=== PATIENT | male | born 1955 | race Caucasian/White ===

== ENCOUNTER 2020-08-28 06:38 | Outpatient (NON) | payer OTHER, SELFPAY ==
[2020-08-29 14:21] LABS: SARS-CoV-2 RNA PCR Negative
== END 2020-08-28 06:39 ==
PROVIDERS: Visit Provider Family Medicine Sports Medicine
DX: Z20.828 Contact with and (suspected) exposure to other viral communicable diseases (principal); R50.9 Fever, unspecified; R53.83 Other fatigue; R53.1 Weakness
CPT/HCPCS: 87635; C9803; U0003

== ENCOUNTER 2024-05-12 14:09 | Observation (INO) | payer OTHER, SELFPAY ==
[2024-05-12] VITALS (29 sets, daily range): BP systolic 119–166; BP diastolic 70–97; PULSE 75–103; RESP 16–23; TEMP 36.4; O2SAT 87–98; BMI 36.1
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
--- NOTE | ~2024-05-12 | XR_ITS ---
EXAMINATION: XR chest 1V portable DATE: 05/12/2024 18:36 INDICATION: Hypoxia. TECHNIQUE: A single frontal view of the chest was obtained on 2 radiographs. COMPARISON: Chest CT 01/12/2024 FINDINGS: There is no pneumonia, pleural effusion, or pneumothorax. The heart size is normal. IMPRESSION: 1. No acute cardiopulmonary disease. Reviewed, dictated and finalized at location E.
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
[2024-05-12] MEDS: MORPHINE SULFATE (*CRX) 2 MG/ML INJ IV PUSH (15:03)
[2024-05-12] MEDS: ONDANSETRON INJ 4 MG/2 ML VIAL IV PUSH (15:03)
--- NOTE | 2024-05-12 16:05 | PC.NURSE ---
Patient has positive seatbelt sign across lower abdomen and across his chest. Patient complaining of left sided rib pain as well.
--- NOTE | 2024-05-12 16:17 | PC.NURSE ---
Spoke with patient's per patient request.
--- NOTE | 2024-05-12 16:18 | PC.NURSE ---
patient to cat scan
[2024-05-12 16:27] LABS: Estimated CRCL calculation 74 ml/min; Estimated Glomerular Filt Rate > 60
[2024-05-12] MEDS: HYDROmorphone HCL INJ (*CRX) 1 MG/ML SYR 0.5 MG IV PUSH (17:08)
--- NOTE | 2024-05-12 18:11 | PC.NURSE ---
went to discharge patient and say patient's O2 sat was not getting above 87%. patient placed on 2L oxygen ad coached with breathing. patient splinting due to pain. Kalen LOZA aware and at bedside at thist time
[2024-05-12] MEDS: methylPREDNISolone SOD SUCC 125 MG VIAL IV PUSH (18:32)
[2024-05-12] MEDS: IPRATROPIUM 0.5 MG/ALBUTEROL SULFATE 2.5 MG AMPUL.NEB 3 ML INHALATION ×2 (18:38→20:31)
--- NOTE | 2024-05-12 19:15 | PC.NURSE ---
Report received from IGLESIA March. Assumed care of patient at this time.
[2024-05-12 19:47] LABS: Basophils Absolute Auto 0.1 K/mm3 (0.0-0.1); Basophils Percent Auto 0.4 % (0.2-1.2); Eosinophils Absolute Auto 0.1 K/mm3 (0-0.3); Eosinophils Percent Auto 0.7 % (0-4.4); Hematocrit 46.7 % (42.0-52.0); Hemoglobin 14.7 g/dL (14.0-18.0); Immature Granulocyte Absolute 0.05 K/mm3 (0.00-0.031); Immature Granulocyte Percent A 0.4 % (0-0.5); Lymphocytes Absolute Auto 1.56 K/mm3 (0.9-3.2); Lymphocytes Percent Auto 12.5 % (18.3-44.2); Mean Corpuscular HGB Conc 31.5 g/dl (32-36); Mean Corpuscular Volume 98.5 fl (80-100); Mean Platelet Volume 8.3 fl (7.4-10.4); Monocytes Absolute Auto 0.9 K/mm3 (0.1-0.6); Monocytes Percent Auto 6.9 % (2.6-8.5); Neutrophils Absolute Auto 9.9 K/mm3 (1.3-6.7); Neutrophils Percent Auto 79.1 % (45.5-73.1); Platelet Count Result 243 k/mm3 (150-375); Red Blood Count 4.74 M/mm3 (4.6-6.20); Red Cell Distribution Width 13.5 % (11.5-14.5); White Blood Count 12.5 K/mm3 (4.5-10.0)
[2024-05-12 19:57] LABS: Alanine Aminotransferase 68 U/L (6-50); Albumin Level 4.5 g/dL (3.5-5.1); Alkaline Phosphatase 69 U/L (38-126); Anion Gap 7 mmol/L (4-12); Aspartate Amino Transferase 65 U/L (17-59); Bilirubin,Total 0.6 mg/dL (0.2-1.3); Blood Urea Nitrogen 23 mg/dL (9-20); Calcium 8.7 mg/dL (8.4-10.2); Carbon Dioxide 30 mmol/L (22-30); Chloride 103 mmol/L (98-107); Estimated CRCL calculation 81 ml/min; Estimated Glomerular Filt Rate > 60; Glucose 121 mg/dL (65-110); Potassium 4.7 mmol/L (3.4-5.0); Sodium 140 mmol/L (137-145)
--- NOTE | 2024-05-12 20:12 | PC.NURSE ---
Patients sister Rach Carrillo calls and leaves number to be contacted. Phone number is [phone].
[2024-05-12] MEDS: AZITHROMYCIN 500 MG/NS 250 ML 500 MG/250 ML BAG 250 MG IVPB (20:39)
[2024-05-12 20:49] LABS: Base Excess ABG -1.3 mEq/l (+/-2.0); Device NASAL CANNULA; Fractional Inspired Oxygen 28 %; Modified Allen's Test Pass; Oxygen Saturation ABG 94.1 % (95.0-100.0); Oxyhemoglobin 93.1 % THb (90.0-100.0); PCO2 ABG 47.6 mmHg (35.0-45.0); PO2 ABG 74.5 mmHg (80.0-100.0); PO2 FiO2 Ratio Arterial Blood 2.66 %; Site Drawn LEFT RADIAL; Total Hemoglobin 15.3 g/dL (12.0-18.0); pH ABG 7.338 (7.350-7.450)
--- NOTE | 2024-05-12 22:37 | ADMGEN ---
This patient, Julius Strickland, was admitted to Medical Room 340-01. Patient/family oriented to hospital policies and general routines including ID bracelet, bed and alarms, visiting hours, pain management, procedures, bathroom and other care routines, personal items, smoking policy, room service/diet, and visiting hours. Information on how to activate the Rapid Response Team has been discussed. Patient/Family are encouraged to report perceived risks to care and to ask questions if they do not understand what they are told or what they should do.
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
--- NOTE | 2024-05-12 23:30 | ECG_ITS ---
Test Date: 2024-05-12 23:48:25 Measurements Intervals [place] Rate: 79 P: -35 VT: 140 QRS: 42 QRSD: 98 T: 54 QT: 388 QTc: 446 Interpretive Statements SINUS RHYTHM NORMAL ELECTROCARDIOGRAM No previous ECG available for comparison Electronically Signed On 05-13-2024 07:28:14 CDT by Checo Shukla M.D.
[2024-05-13] VITALS (9 sets, daily range): BP systolic 165; BP diastolic 73; PULSE 72–101; RESP 16–20; TEMP 36.3; O2SAT 95
[2024-05-13] MEDS: ALBUTEROL SULFATE NEB 2.5 MG/3 ML INH 5 MG INHALATION ×2 (02:47→07:00)
[2024-05-13] MEDS: IPRATROPIUM BR 0.02% INH SOLN 0.5 MG/2.5 ML VIAL INHALATION ×2 (02:47→07:00)
[2024-05-13] MEDS: methylPREDNISolone SOD SUCC 125 MG VIAL 80 MG IV PUSH ×2 (02:47→03:45)
[2024-05-13] MEDS: metroNIDAZOLE 500 MG/ISO 100ML 500 MG/100 ML BAG 100 MG IVPB (05:59)
[2024-05-13] MEDS: FLUTICASONE/UMECLIDIN/VILANTER 100-62.5-25 MCG ELLIPTA 1 PUFF INHALATION (07:05)
[2024-05-13] MEDS: METOPROLOL TARTRATE 50 MG TAB 100 MG PO (08:43)
[2024-05-13] MEDS: ACYCLOVIR 400 MG TABLET PO (08:43)
[2024-05-13] MEDS: DONEPEZIL HCL 10 MG TABLET PO (08:43)
[2024-05-13] MEDS: MELOXICAM 7.5 MG TABLET PO (08:43)
[2024-05-13] MEDS: PANTOPRAZOLE 40 MG TABLET PO (08:43)
[2024-05-13 08:44] LABS: Hemoglobin 14.1 g/dL (14.0-18.0); Mean Corpuscular HGB Conc 31.3 g/dl (32-36); Mean Corpuscular Hemoglobin 31.1 pg (26-34); Mean Corpuscular Volume 99.3 fl (80-100); Mean Platelet Volume 8.4 fl (7.4-10.4); Platelet Count Result 229 k/mm3 (150-375); Red Blood Count 4.53 M/mm3 (4.6-6.20); Red Cell Distribution Width 13.6 % (11.5-14.5); White Blood Count 9.8 K/mm3 (4.5-10.0)
[2024-05-13 08:48] LABS: Alanine Aminotransferase 57 U/L (6-50); Albumin Level 4.5 g/dL (3.5-5.1); Alkaline Phosphatase 70 U/L (38-126); Anion Gap 14 mmol/L (4-12); Aspartate Amino Transferase 52 U/L (17-59); Bilirubin,Total 0.5 mg/dL (0.2-1.3); Blood Urea Nitrogen 28 mg/dL (9-20); Calcium 8.5 mg/dL (8.4-10.2); Carbon Dioxide 24 mmol/L (22-30); Chloride 103 mmol/L (98-107); Estimated CRCL calculation 82 ml/min; Estimated Glomerular Filt Rate > 60; Glucose 185 mg/dL (65-110); Potassium 4.2 mmol/L (3.4-5.0); Sodium 141 mmol/L (137-145)
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
== END 2024-05-13 12:30 | disposition home or self-care (01) ==
LOC: ANHED 17:43 → ANH3MED 05-13 00:22
PROVIDERS: Admitting Provider Internal Medicine; Emergency Provider Physician Assistant; PCP Family Medicine; Visit Provider Nurse Practitioner Family
DX: J96.01 Acute respiratory failure with hypoxia (principal); J44.1 Chronic obstructive pulmonary disease with (acute) exacerbation; T14.8XXA Other injury of unspecified body region, initial encounter; V48.5XXA Car driver injured in noncollision transport accident in traffic accident, initial encounter; K57.32 Diverticulitis of large intestine without perforation or abscess without bleeding; I10 Essential (primary) hypertension; F03.90 Unspecified dementia, unspecified severity, without behavioral disturbance, psychotic disturbance, mood disturbance, and anxiety; K21.9 Gastro-esophageal reflux disease without esophagitis; Z87.891 Personal history of nicotine dependence; Z79.51 Long term (current) use of inhaled steroids; Z87.820 Personal history of traumatic brain injury
CPT/HCPCS: 36415; 36600; 70450; 70486; 71045; 71260; 72125; 73090; 74177; 80053; 82805; 85025; 85027; 93005; 94640; 96365; 96367; 96374; 96375; 96376; 99285; A9270; G0378; J0456; J0696; J1170; J1836; J2270; J2405; J2919; Q9967